=== PATIENT | male | born 1965 | race Caucasian/White ===

== ENCOUNTER 2017-09-20 22:55 | Emergency (ER) | payer BC, MEDICAID ==
[~2017-09-20] VITALS: Ht 160 cm; Wt 81.6 kg
[2017-09-20] MEDS ORDERED: LORAZEPAM 0.5 MG TABLET PO ONE (23:15)
[2017-09-20] MEDS ORDERED: IV NORMAL SALINE 1000 ML BAG IV ONE (23:15)
--- NOTE | 2017-09-20 23:15 | NUR ---
Pt became upset when I asked him to provide a urine specimen as ordered by ER physician and walked out of ER with steady gait. Pt a/ox4 with no s/s of acute distress noted. aware.
== END 2017-09-20 23:18 | disposition left against medical advice (07) ==
LOC: ER 22:59
DX: R44.3 Hallucinations, unspecified (principal); F15.10 Other stimulant abuse, uncomplicated; I10 Essential (primary) hypertension; F31.9 Bipolar disorder, unspecified; F32.9 Major depressive disorder, single episode, unspecified; F41.9 Anxiety disorder, unspecified; Z95.1 Presence of aortocoronary bypass graft
CPT/HCPCS: 99284; A4663

== ENCOUNTER 2019-05-12 01:38 | Inpatient (IN) | payer BC, MEDICAID, MEDICARE, OTHER ==
[~2019-05-12] VITALS: Ht 160 cm; Wt 72.1 kg
--- NOTE | 2019-05-12 01:55 | NUR ---
PATIENT WAS MSE BY DR EASTMAN IN ROOM 01B.
[2019-05-12] MEDS ORDERED: CEFTRIAXONE 1 G in IV DEXTROSE 5% 50 ML IV ONE (02:00)
[2019-05-12] MEDS ORDERED: IV NORMAL SALINE 500 ML BAG IV ONE (02:00)
[2019-05-12] MEDS ORDERED: CEFTRIAXONE 1 G VIAL ONE (02:13)
[2019-05-12] MEDS ORDERED: VANCOMYCIN IV 1,000 MG in IV DEXTROSE 5% 250 ML IV ONE (02:15)
[2019-05-12] MEDS ORDERED: VANCOMYCIN IV 200 ML ONE (02:19)
[2019-05-12 02:20] LABS: BASOPHILS % (AUTO) 0.4 % (0.0-2.0); EOSINOPHILS # (AUTO) 0.1 K/uL (0.0-0.7); EOSINOPHILS % (AUTO) 1.1 % (0.0-7.0); HEMATOCRIT 38.4 % (36.7-47.1); HEMOGLOBIN 13.2 g/dL (12.5-16.3); LYMPHOCYTES # (AUTO) 2.5 K/uL (20.0-40.0); LYMPHOCYTES % (AUTO) 31.1 % (20.5-51.5); MEAN CORPUSCULAR HEMOGLOBIN 32.8 uug (23.8-33.4); MEAN CORPUSCULAR HGB CONC 34 g/dL (32.5-36.3); MEAN CORPUSCULAR VOLUME 95.9 fL (73.0-96.2); MONOCYTES # (AUTO) 0.6 K/uL (2.0-10.0); MONOCYTES % (AUTO) 7.5 % (0.0-11.0); NEUTROPHILS # (AUTO) 4.7 K/uL (1.8-8.9); NEUTROPHILS % (AUTO) 59.9 % (38.5-71.5); PLATELET COUNT (AUTO) 260 K/uL (152-348); RED BLOOD CELL COUNT(AUTO) 4.01 MIL/uL (4.06-5.63); WHITE BLOOD COUNT (AUTO) 7.9 K/uL (3.6-10.2)
[2019-05-12 02:26] LABS: CREATININE 1.8 mg/dL (0.6-1.3); POTASSIUM 3.5 mmol/L (3.5-5.1)
[2019-05-12 02:39] LABS: BILIRUBIN,DIRECT 0.3 mg/dL (0.0-0.2); BILIRUBIN,TOTAL 1.1 mg/dL (0.2-1.0); TOTAL PROTEIN, SERUM 8.3 g/dL (6.4-8.2)
--- NOTE | 2019-05-12 03:04 | NUR ---
Pt. admitted to [facility] , under care of AC Hobson NP. Belongs List completed
[2019-05-12] MEDS ORDERED: TEMAZEPAM 15 MG CAPSULE GT PRN (03:15)
[2019-05-12] MEDS ORDERED: MAGNESIUM HYDROXIDE 30 ML LIQUID UDC PO PRN (03:15)
[2019-05-12] MEDS ORDERED: Z GUARD REMEDY PASTE 57 GM TUBE TOP PRN (03:15)
[2019-05-12] MEDS ORDERED: PIPERACILLIN/TAZO 2.25 G in IV DEXTROSE 5% 50 ML IV SCH (03:15)
[2019-05-12] MEDS ORDERED: ONDANSETRON 4 MG/2 ML VIAL IV PRN (03:15)
[2019-05-12] MEDS ORDERED: ACETAMINOPHEN 325 MG TABLET PO PRN (03:15)
[2019-05-12] MEDS ORDERED: PIPERACILLIN/TAZOBACTAM/D5W 2.25 G in PREMIXED 1 EACH IV ONE (03:30)
--- NOTE | 2019-05-12 03:30 | NUR ---
Admitted 53y/o Male under the care of [facility]. Dx: PNA possible aspiration/Gtube site cellulitis. Patient is A&Ox4, can ambulate w/ standby assistance. Oriented patient to his room and w/ the use of call light. Placed patient on Tele monitor noted w/ SR. On NPO. Noted w/ Gtube site redness, dressing applied. Patient noted coughing a lot w/ clear to yellowish thick phlegm. IV access on RFA 20g intact and patent w/ saline flush. Body assessment done. Admission protocol initiated. Safety measures observed. Call light in reach
[2019-05-12] MEDS: IV NS 1000 ML 1,000 ML IV PRN (03:46)
[2019-05-12] MEDS ORDERED: PIPERACILLIN/TAZOBACTAM/D5W 50 ML ONE (03:58)
[2019-05-12 04:00] VITALS: BP 100/58
[2019-05-12 06:39] LABS: *BILIRUBIN,URIN NEGATIVE (NEGATIVE); *BLOOD, URINE NEGATIVE (NEGATIVE); *CLARITY,URINE CLEAR (CLEAR); *COLOR,URINE DARK YELLOW (YELLOW); *KETONES,URINE TRACE (NEGATIVE); LEUKOCYTE ESTERASE ,URINE NEGATIVE (NEGATIVE); NITRITE, URINE NEGATIVE (NEGATIVE); UGLUCOSE NEGATIVE (NEGATIVE)
[2019-05-12 06:46] LABS: BACTERIA,URINE NONE SEEN /HPF (NONE SEEN); RBC,URINE 0-3 /HPF (0-3); SQUAMOUS EPITHELIAL CELL,UR FEW /HPF (NONE SEEN); WBC,URINE 0-3 /HPF (0-3)
--- NOTE | 2019-05-12 07:30 | NUR ---
Patient calm and comfortable during initial assessment ; patient resting in bed with stable vital signs ; patient will continue to be monitored.
[2019-05-12] MEDS: ASPIRIN 81 MG TAB.CHEW GT SCH (09:45)
[2019-05-12] MEDS: PANTOPRAZOLE SODIUM 40 MG VIAL IV SCH (09:45)
[2019-05-12 11:48] VITALS: BP 93/63
[2019-05-12] MEDS: PIPERACILLIN/TAZO 2.25 G in IV DEXTROSE 5% 50 ML IV SCH ×2 (14:01→18:05)
--- NOTE | 2019-05-12 14:46 | NUR ---
Clinical Pharmacy Note: Vancomycin Pharmacy to Dose Subjective: To start vancomycin in this 53y/o male for indication of cellulitis Objective: weight 72kg height 160cm BUN/Scr 45/1.8 wbc 7.9 temp 98.6 1gm given in ER 05/12 @ 0230 Random vanco level today at 1400: 6.1 Assessment/Plan As renal function appears reduced, will dose per level for now. Per today's random, dosed another vanco 1250mg x1 at 1500. Next random ordered for tomorrow at 1400. Will check level when available and re-dose as needed. Will also follow and schedule regimen if renal function were to stabilize. Will monitor
[2019-05-12] MEDS ORDERED: VANCOMYCIN IV 1,250 MG in IV DEXTROSE 5% 250 ML IV ONE (15:00)
[2019-05-12 15:48] VITALS: BP 113/62
[2019-05-12] MEDS ORDERED: JEVITY 1.2 1000 ML LIQUID GT SCH (16:15)
[2019-05-12] MEDS ORDERED: LACTULOSE 20 G/30 ML LIQUID UDC PEG PRN (17:30)
--- NOTE | 2019-05-12 18:46 | NUR ---
Patient calm and comfortable through out shift but with excessive clear sputum production ; patient iv site replaced ; placed orders for Jevity; orders received and carried out ; patient also given prn lactulose for constipation; patient resting in bed upon departure; patient kept npo with medications given through g-tube; patient otherwise with stable vital signs and no signs of distress.
--- NOTE | 2019-05-12 19:30 | NUR ---
patient c/o of feeling uncomfortable in his stomach and requesting to lower jevity from 70cc/hr to 60cc/hr. airam zimmer aware and 60 cc/hr is okay.
[2019-05-12 20:43] VITALS: BP 132/86
[2019-05-12] MEDS: HYDROCODONE/APAP 5-325MG TABLET GT PRN (20:49)
--- NOTE | 2019-05-12 21:46 | NUR ---
patient refusing to have feeding tube on for tonight and will let me know in the morning. c/o feeling uncomfortable and bloating in stomach. dory zimmer np aware of the situation. will continue to monitor patient.
[2019-05-13] MEDS: IV NS 1000 ML 1,000 ML IV PRN (04:03)
[2019-05-13] MEDS: PIPERACILLIN/TAZO 2.25 G in IV DEXTROSE 5% 50 ML IV SCH ×4 (05:54→13:12)
[2019-05-13 06:00] VITALS: BP 93/49
[2019-05-13 06:32] LABS: CREATININE 1.1 mg/dL (0.6-1.3); MAGNESIUM 2.1 mg/dL (1.8-2.4); PHOSPHOROUS 4.1 mg/dL (2.5-4.9); POTASSIUM 3.7 mmol/L (3.5-5.1)
[2019-05-13 06:44] LABS: BASOPHILS % (AUTO) 0.4 % (0.0-2.0); EOSINOPHILS # (AUTO) 0.1 K/uL (0.0-0.7); EOSINOPHILS % (AUTO) 1.7 % (0.0-7.0); HEMATOCRIT 38.1 % (36.7-47.1); HEMOGLOBIN 12.7 g/dL (12.5-16.3); LYMPHOCYTES # (AUTO) 2.1 K/uL (20.0-40.0); LYMPHOCYTES % (AUTO) 28.6 % (20.5-51.5); MEAN CORPUSCULAR HEMOGLOBIN 32.3 uug (23.8-33.4); MEAN CORPUSCULAR HGB CONC 34 g/dL (32.5-36.3); MEAN CORPUSCULAR VOLUME 96.5 fL (73.0-96.2); MONOCYTES # (AUTO) 0.6 K/uL (2.0-10.0); MONOCYTES % (AUTO) 8.8 % (0.0-11.0); NEUTROPHILS # (AUTO) 4.4 K/uL (1.8-8.9); NEUTROPHILS % (AUTO) 60.5 % (38.5-71.5); PLATELET COUNT (AUTO) 265 K/uL (152-348); RED BLOOD CELL COUNT(AUTO) 3.94 MIL/uL (4.06-5.63); WHITE BLOOD COUNT (AUTO) 7.3 K/uL (3.6-10.2)
--- NOTE | 2019-05-13 07:30 | NUR ---
Patient calm and comfortable with no signs of distress; patient will continue to be monitored.
[2019-05-13] MEDS: ASPIRIN 81 MG TAB.CHEW GT SCH (08:46)
[2019-05-13] MEDS: HYDROCODONE/APAP 5-325MG TABLET GT PRN (08:46)
[2019-05-13] MEDS: PANTOPRAZOLE SODIUM 40 MG VIAL IV SCH (08:47)
[2019-05-13] MEDS ORDERED: VANCOMYCIN IV 1,000 MG in IV DEXTROSE 5% 250 ML IV SCH (09:00)
--- NOTE | 2019-05-13 09:18 | NUR ---
Clinical Pharmacy Note: Vancomycin Pharmacy to Dose Subjective: To continue vancomycin in this 53y/o male for indication of cellulitis Objective: weight 72kg height 160cm BUN/Scr 23/1.1 (decreased) wbc 7.9 temp 98.6 Random vanco level 2/9 at 1400: 6.1 Random vanco level 2/10 with am lab: 13 Assessment/Plan Since srcr has decreased, will start vanco 1 gm IVPB q14h for predicted vanco trough level of 16 mcg/ml. 1st dose today at 0900. Plan to order vanco trough level before 4th dose (not yet ordered). Will monitor
[2019-05-13] MEDS ORDERED: LACTULOSE 20 G/30 ML LIQUID UDC PO SCH (10:15)
[2019-05-13] MEDS ORDERED: ACYCLOVIR 400 MG TABLET PO SCH (11:30)
[2019-05-13] MEDS ORDERED: LATANOPROST OPHT DROP 2.5 ML BOTTLE RIGHTEYE SCH ×2 (11:30→21:00)
[2019-05-13] MEDS ORDERED: DORZOLAMIDE 2% OPHT DROP 10 ML BOTTLE EACHEYE SCH ×2 (11:30→13:00)
[2019-05-13 11:58] VITALS: BP 120/63
[2019-05-13] MEDS ORDERED: SORBITOL 70% SOLUTION 30 ML UDC PO SCH (12:00)
[2019-05-13] MEDS: GABAPENTIN 300 MG CAPSULE PO SCH ×2 (12:06→15:22)
[2019-05-13] MEDS ORDERED: BRIMONIDINE 0.2% OPHT DROP 10 ML BOTTLE EACHEYE SCH (13:00)
[2019-05-13] MEDS ORDERED: ACYCLOVIR 200 MG CAPSULE PO SCH (14:00)
[2019-05-13 15:38] VITALS: BP 106/63
--- NOTE | 2019-05-13 18:05 | NUR ---
Patient discharged home in stable condition; patient refused to have picture taken of small wounds as he said they were fine; patient educated on discharge instruction and verbalized understanding. Patient with stable vital signs upon departure; Patient left via private car with friend.
[2019-05-14] MEDS ORDERED: PANTOPRAZOLE ORAL SUSPENSION 40 MG SUSPDR.PKT GT SCH (09:00)
== END 2019-05-13 17:54 | disposition home or self-care (01) | DRG 683 ==
LOC: ER 01:39 → MEDSURG3 03:13 → TELE3 03:47 → MEDSURG3 15:21
PROVIDERS: ADMIT Nurse Practitioner Acute Care; ATTEND Nurse Practitioner Acute Care
DX: N17.0 Acute kidney failure with tubular necrosis (principal); I69.351 Hemiplegia and hemiparesis following cerebral infarction affecting right dominant side; J98.11 Atelectasis; I69.391 Dysphagia following cerebral infarction; R13.10 Dysphagia, unspecified; Z93.1 Gastrostomy status; K59.00 Constipation, unspecified; F31.9 Bipolar disorder, unspecified; Z95.1 Presence of aortocoronary bypass graft; Z91.19 Patient's noncompliance with other medical treatment and regimen; Z87.81 Personal history of (healed) traumatic fracture; B00.1 Herpesviral vesicular dermatitis; E86.0 Dehydration; R47.02 Dysphasia; I11.9 Hypertensive heart disease without heart failure
CPT/HCPCS: 36415; 70030-TC; 71045; 74018; 83735; 84100; 85025; 85730; 87040; 87070; 87086; 87400; 93005; A4663; C9113; G0378; J0696; J2543; J3370; J7030; J7040; J7060